=== PATIENT | female | born 1995 | race Caucasian/White ===

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

== ENCOUNTER 2018-08-21 21:22 | Emergency (ER) | payer MEDICAID ==
[2018-08-21 21:37] VITALS: BP 124/83
[2018-08-21] MEDS ORDERED: Lidocaine 4% Top Soln 50 ML Bottle MUCMEM ONE (22:08)
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
== END 2018-08-21 23:12 | disposition home or self-care (01) ==
LOC: JP.ED 21:22
DX: J02.9 Acute pharyngitis, unspecified (principal); F41.9 Anxiety disorder, unspecified; F32.9 Major depressive disorder, single episode, unspecified; Z88.6 Allergy status to analgesic agent; Z79.899 Other long term (current) drug therapy
CPT/HCPCS: 99282; A9270

== ENCOUNTER 2018-09-13 23:54 | Emergency (ER) | payer MEDICAID ==
[2018-09-14 00:22] VITALS: BP 115/82; PULSE 81
[2018-09-14] MEDS ORDERED: Acetaminophen/HYDROcodone 325-5 MG Tab PO ONE (00:40)
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
== END 2018-09-14 00:52 | disposition home or self-care (01) ==
LOC: JP.ED 23:54
DX: K01.1 Impacted teeth (principal); F41.9 Anxiety disorder, unspecified; F32.9 Major depressive disorder, single episode, unspecified; F17.210 Nicotine dependence, cigarettes, uncomplicated; Z79.899 Other long term (current) drug therapy; Z90.49 Acquired absence of other specified parts of digestive tract
CPT/HCPCS: 99282; A9270

== ENCOUNTER 2018-10-19 12:47 | Emergency (ER) | payer MEDICAID ==
[2018-10-19 13:09] VITALS: BP 112/76
[2018-10-19] MEDS ORDERED: Lidocaine 1% with EPINEPHrine 1:100,000 50 ML MDV INFILT STA (13:25)
[2018-10-19] MEDS ORDERED: Bupivacaine 0.5%/EPINEPHrine 1:200,000 1.8 ML Cartridge INJECT ONE (13:35)
[2018-10-19] MEDS ORDERED: Bupivacaine 0.5%/EPINEPHrine 1:200,000 1.8 ML Cartridge ONE (13:36)
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
== END 2018-10-19 14:05 | disposition home or self-care (01) ==
LOC: JP.ED 12:47
DX: K13.79 Other lesions of oral mucosa (principal); F41.9 Anxiety disorder, unspecified; F32.9 Major depressive disorder, single episode, unspecified; F90.9 Attention-deficit hyperactivity disorder, unspecified type; F17.210 Nicotine dependence, cigarettes, uncomplicated; Z90.49 Acquired absence of other specified parts of digestive tract; Z79.899 Other long term (current) drug therapy
CPT/HCPCS: 64400; 99282; J3490

== ENCOUNTER 2018-11-18 07:27 | Day surgery (SDC) | payer MEDICAID ==
[2018-11-18] MEDS: Dextrose 5%-Lactated Ringers 1,000 ML IV SCH ×2 (08:22→11:33)
[2018-11-18] MEDS ORDERED: metroNIDAZOLE/Normal Saline 500 MG in Premix Bag 1 BAG IV ONE (08:47)
[2018-11-18] MEDS ORDERED: Lidocaine 1% with EPINEPHrine 1:100,000 50 ML MDV ONE (08:57)
[2018-11-18] MEDS ORDERED: Bupivacaine 0.5% 50 ML MDV ONE (08:57)
[2018-11-18] MEDS ORDERED: ceFAZolin 2 GM in Premix Bag 1 BAG IV ONE (09:15)
[2018-11-18] MEDS ORDERED: fentaNYL 100 MCG/2 ML SDV ONE (10:00)
[2018-11-18] MEDS ORDERED: Propofol 200 MG/20 ML SDV ONE (10:00)
[2018-11-18] MEDS ORDERED: Glycopyrrolate 0.2 MG/ML 5 ML MDV ONE (10:00)
[2018-11-18] MEDS ORDERED: Ondansetron 4 MG/2 ML SDV ONE (10:00)
[2018-11-18] MEDS ORDERED: fentaNYL 250 MCG/5 ML SDV ONE (10:00)
[2018-11-18] MEDS ORDERED: Midazolam 1 MG/ML 2 ML SDV ONE (10:00)
[2018-11-18] MEDS ORDERED: Neostigmine Methylsulfate 1 MG/ML 5 ML Syringe ONE (10:00)
[2018-11-18] MEDS ORDERED: Rocuronium 50 MG/5 ML Vial ONE (10:00)
[2018-11-18] MEDS ORDERED: valACYclovir 1,000 MG Tab PO PRN (10:40)
[2018-11-18] MEDS ORDERED: Ondansetron 4 MG/2 ML SDV IVPUSH PRN (10:42)
[2018-11-18] MEDS ORDERED: Ketorolac 30 MG/ML SDV IVPUSH SCH (10:45)
[2018-11-18] MEDS: Acetaminophen 500 MG Tab PO PRN ×2 (11:47→20:56)
[2018-11-18] MEDS: fentaNYL 100 MCG/2 ML SDV IVPUSH PRN ×5 (11:55→20:56)
[2018-11-18] MEDS: Lactated Ringers 1,000 ML IV SCH (19:37)
[2018-11-18] MEDS: Escitalopram 20 MG Tab PO SCH (20:56)
[2018-11-18] MEDS ORDERED: Escitalopram 10 MG Tab PO SCH (21:00)
[2018-11-18] MEDS: Acetaminophen/HYDROcodone 325-5 MG Tab PO PRN (22:34)
[2018-11-19] MEDS: Acetaminophen/HYDROcodone 325-5 MG Tab PO PRN ×2 (02:24→07:39)
[2018-11-19] MEDS: Lactated Ringers 1,000 ML IV SCH (02:26)
--- NOTE | 2018-11-19 07:42 | OR ---
DATE OF PROCEDURE: 11/18/2018 SURGEON: Abe Yao MD PREOPERATIVE DIAGNOSIS: Early acute appendicitis. POSTOPERATIVE DIAGNOSES: Unremarkable-appearing appendix. PROCEDURE: Laparoscopic exploration with appendectomy. ANESTHESIA: General endotracheal. INDICATION: This 22-year-old white female has complained of right lower quadrant abdominal pain for about a week and a half. She was seen in the walk-in clinic apparently on the 13 of November and a CAT scan was ordered. This showed mild prominence of the appendiceal tip measuring 7 to 8 mm in diameter and suggestive of mild adjacent inflammatory stranding. This has been considered consistent with early appendicitis. She is afebrile and her white count is unremarkable. She was referred to surgery yesterday, but she had just eaten a meal, so was referred then to me today for a laparoscopic appendectomy. I counseled her for the procedure, including risks and alternatives, and she gave her informed consent to proceed. DESCRIPTION OF PROCEDURE: After adequate general endotracheal anesthesia was obtained, a Turner catheter was placed. The leg compression stockings were in place and used during the entire procedure. Her abdomen was prepped and draped in the usual sterile fashion. Time- out was held. An infraumbilical semicircular incision was made and under direct vision, a 12-mm port was introduced into the abdomen through this incision using the Optiview technique. The camera was introduced into the abdomen and the abdomen was insufflated to a pressure of 15 mmHg with carbon dioxide. No evidence of intraabdominal injury was seen. Under direct vision, 12 mm ports were placed in the right upper and left lower quadrants. We saw some scant fluid in the abdomen, which was aspirated free and sent for Gram stain and culture. The appendix was identified, and it appeared normal. It was not distended, it was not erythematous. The base of the appendix was divided with the endoscopic GREG using a leavitt load. Purple load was used to divide the mesoappendix. The appendix was placed in a sample retrieval bag and elevated up through the anterior abdominal wall via the right upper quadrant port site. It was delivered from the field. The ovaries and tubes appeared unremarkable. The distal small bowel showed no evidence of Crohn's disease nor of Meckel's. The abdomen was then closed. This was done by placing #1 Vicryl stitches in the right upper and left lower quadrant fascial defects using the fascial closure device. We did not tie the stitches down until they were both placed. The stitches were then tied down. The infraumbilical port was removed. An interrupted stitch of 0 Vicryl was used to close this fascial defect. Before tying the stitch down, we evacuated as much CO2 as we could from the abdomen. Lidocaine 1% with epinephrine in a 50:50 mix with 0.5% Marcaine was infiltrated about the incisions. A 4-0 Vicryl was used and a subcuticular stitch was placed to approximate the skin of the incisions. Dermabond was applied. The Turner catheter was removed. The anesthesia was reversed. She was extubated and brought to recovery room in good condition. Abe Yao MD /[id number]
[2018-11-19 07:47] VITALS: BP 132/83; PULSE 88
[2018-11-19] MEDS: Escitalopram 20 MG Tab PO SCH (08:58)
== END 2018-11-19 10:55 | disposition home or self-care (01) ==
LOC: JP.SDS 07:27 → JP.ICU 10:43 → JP.SDS 11-19 10:55
PROVIDERS: ATTEND Surgery
DX: K38.8 Other specified diseases of appendix (principal); F17.210 Nicotine dependence, cigarettes, uncomplicated; F41.9 Anxiety disorder, unspecified; F41.8 Other specified anxiety disorders; F90.9 Attention-deficit hyperactivity disorder, unspecified type; G43.809 Other migraine, not intractable, without status migrainosus; M54.2 Cervicalgia
CPT/HCPCS: 36415; 44970; 80048; 85027; 87070; 87075; 87205; A9270; J0690; J2250; J2405; J2704; J2710; J3010; J3490; J7042; J7120

== ENCOUNTER 2019-05-16 21:07 | Emergency (ER) | payer MEDICAID ==
[2019-05-16 21:30] VITALS: BP 120/83; PULSE 103
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
== END 2019-05-16 23:28 | disposition home or self-care (01) ==
LOC: JP.ED 21:07
DX: O98.512 Other viral diseases complicating pregnancy, second trimester (principal); B34.9 Viral infection, unspecified; O99.332 Smoking (tobacco) complicating pregnancy, second trimester; F17.210 Nicotine dependence, cigarettes, uncomplicated; Z88.1 Allergy status to other antibiotic agents; Z3A.18 18 weeks gestation of pregnancy
CPT/HCPCS: 36415; 85025; 87081; 87804; 87804-59; 87880-QW; 99282; 99283

== ENCOUNTER 2019-10-08 06:41 | Inpatient (IN) | payer MEDICAID ==
[2019-10-08] MEDS ORDERED: Misoprostol 50 MCG (1/2 of 100 MCG) Tab VAG ONE (06:46)
[2019-10-08] MEDS ORDERED: Sodium Chloride 0.9% 10 ML Syringe FLUSH PRN ×2 (08:02→12:09)
[2019-10-08] MEDS ORDERED: Clindamycin Phosphate 900 MG/6 ML SDV IM SCH (08:15)
[2019-10-08] MEDS: Lactated Ringers 1,000 ML IV SCH ×2 (08:15→12:20)
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
[2019-10-08] MEDS: Clindamycin Phosphate 900 MG in Sodium Chloride 0.9% 100 ML IV SCH ×2 (08:27→16:36)
[2019-10-08] MEDS ORDERED: Misoprostol 50 MCG (1/2 of 100 MCG) Tab ONE (11:09)
--- NOTE | 2019-10-08 11:19 | PCM.PNLD ---
Labor Progress Note - VS & Meds Vital Signs: Last Vital Signs Temp 96.5 F L 10/08/19 09:45 Pulse 101 H 10/08/19 09:45 Resp 16 10/08/19 09:45 BP 102/57 L 10/08/19 09:45 Pulse Ox 94 L 10/08/19 09:45 Active Medications: Current Medications Oxytocin/Sodium Chloride (Pitocin In Ns 20 Units/1,000 Ml) 20 unit in 1,000 mls @ 6 mls/hr IV TITRATE [facility]; Protocol Last Titration: 10/08/19 11:13 Dose: 12 munits/min, 36 mls/hr Documented by: Clindamycin Phosphate 900 mg/ (Sodium Chloride) 106 mls @ 212 mls/hr IV Q8H [facility] Last Admin: 10/08/19 08:27 Dose: 212 mls/hr Documented by: Lactated Ringer's (Ringers, Lactated) 1,000 mls @ 0 mls/hr IV ASDIRECTED [facility] Last Admin: 10/08/19 08:15 Dose: 25 mls/hr Documented by: Sodium Chloride (Saline Flush) 10 ml FLUSH ASDIRECTED PRN PRN Reason: Keep Vein Open Discontinued Medications Misoprostol (Cytotec) 50 mcg VAG ONETIME ONE Stop: 10/08/19 06:47 Last Admin: 10/08/19 07:57 Dose: Not Given Documented by: Misoprostol (Cytotec) Confirm Administered Dose 50 mcg .ROUTE .STK-MED ONE Stop: 10/08/19 11:10 - Uterine Contractions Uterine Monitoring Mode: External [place] Contraction Frequency (min): 0 Contraction Intensity: Moderate Uterine Resting Tone: Soft - Monitoring Heart Rate (FHR) Baseline: 150 Heart Rate (FHR) Variability: Moderate (6-25 bmp) Accelerations: Present, 15x15 Decelerations: None Strip Review: Category I - Vaginal Exam Dilation (cm): 4 Effacement (Percent): 80 Station: 0 Cervical Position: Anterior Sterile Vaginal Exam Performed By: Nadja De La Rosa Vaginal Exam Comment: nice cahnge, AROM large amount clear fluid - Labor Progress (Free Text) Labor Progress: Cat one strip labor Plan anticipate vaginal delivery
[2019-10-08] MEDS ORDERED: Ropivacaine 100 ML ONE (11:46)
[2019-10-08] MEDS ORDERED: Naloxone 0.4 MG/ML SDV IVPUSH PRN (12:09)
[2019-10-08] MEDS ORDERED: diphenhydrAMINE 50 MG/ML SDV IVPUSH PRN ×2 (12:09)
[2019-10-08] MEDS ORDERED: ePHEDrine 50 MG/ML SDV IVPUSH PRN (12:09)
[2019-10-08] MEDS ORDERED: Ropivacaine 200 MG in Premix Bag 1 BAG EPIDUR SCH (12:15)
--- NOTE | 2019-10-08 13:04 | US ---
BPP w NST INDICATION: labor induction COMPARISON: None FINDINGS: Single live IUP at 39 weeks 0 days by menstrual dating. ZELAL[place] is 10/15/2019 heart rate: 135 BPM. Biophysical profile score: 8/8. CALE: 12.5 cm. IMPRESSION: Normal biophysical profile score of 8/8.
--- NOTE | 2019-10-08 13:47 | PCM.PNLD ---
Labor Progress Note - VS & Meds Vital Signs: Last Vital Signs Temp 96.5 F L 10/08/19 09:45 Pulse 101 H 10/08/19 09:45 Resp 16 10/08/19 09:45 BP 102/57 L 10/08/19 09:45 Pulse Ox 94 L 10/08/19 09:45 Active Medications: Current Medications Diphenhydramine HCl (Benadryl) 25 mg IVPUSH Q6H PRN PRN Reason: Itching Diphenhydramine HCl (Benadryl) 50 mg IVPUSH Q6H PRN PRN Reason: Itching Ephedrine Sulfate (Ephedrine Sulfate) 10 mg IVPUSH ASDIRECTED PRN PRN Reason: Hypotension Oxytocin/Sodium Chloride (Pitocin In Ns 20 Units/1,000 Ml) 20 unit in 1,000 mls @ 6 mls/hr IV TITRATE [facility]; Protocol Last Titration: 10/08/19 11:13 Dose: 12 munits/min, 36 mls/hr Documented by: Clindamycin Phosphate 900 mg/ (Sodium Chloride) 106 mls @ 212 mls/hr IV Q8H [facility] Last Admin: 10/08/19 08:27 Dose: 212 mls/hr Documented by: Lactated Ringer's (Ringers, Lactated) 1,000 mls @ 0 mls/hr IV ASDIRECTED [facility] Last Admin: 10/08/19 12:20 Dose: 25 mls/hr Documented by: Ropivacaine 200 mg/ Premix 100 mls @ 0 mls/hr EPIDUR ASDIRECTED [facility] Last Admin: 10/08/19 12:00 Dose: 12 mls/hr Documented by: Naloxone HCl (Narcan) 0.1 mg IVPUSH ASDIRECTED PRN PRN Reason: Oversedation Sodium Chloride (Saline Flush) 10 ml FLUSH ASDIRECTED PRN PRN Reason: Keep Vein Open Sodium Chloride (Saline Flush) 10 ml FLUSH ASDIRECTED PRN PRN Reason: Keep Vein Open Discontinued Medications Ropivacaine (Naropin 0.2%) Confirm Administered Dose 100 mls @ as directed .ROUTE .STK-MED ONE Stop: 10/08/19 11:47 Misoprostol (Cytotec) 50 mcg VAG ONETIME ONE Stop: 10/08/19 06:47 Last Admin: 10/08/19 07:57 Dose: Not Given Documented by: Misoprostol (Cytotec) Confirm Administered Dose 50 mcg .ROUTE .STK-MED ONE Stop: 10/08/19 11:10 Last Admin: 10/08/19 12:19 Dose: Not Given Documented by: - Uterine Contractions Uterine Monitoring Mode: External [place] Contraction Frequency (min): 2-2.5 Contraction Duration (sec): 50-60 Contraction Intensity: Moderate Uterine Resting Tone: Soft - Monitoring Heart Rate (FHR) Baseline: 150 Heart Rate (FHR) Variability: Moderate (6-25 bmp) Accelerations: Present, 15x15 Decelerations: None Strip Review: Category I - Vaginal Exam Dilation (cm): 6 Effacement (Percent): 90 Station: 1 Cervical Position: Anterior Sterile Vaginal Exam Performed By: Nadja De La Rosa Vaginal Exam Comment: progressing, comfortable with epidural - Labor Progress (Free Text) Labor Progress: Doing well Plan for vaginal delivery this afternoon
--- NOTE | 2019-10-08 14:48 | PCM.DEL ---
L & D Note - General Info Date of Service: 10/08/19 (Childbirth) Mother's Due Date: 10/15/19 - Delivery Note Labor: Spontaneous Cervical Ripening Method: Misoprostil Delivery Outcome: Livebirth Delivery Method: Spontaneous Vaginal Delivery-Single Infant Delivery Mode: Spontaneous Presentation: Vertex Nuchal Cord: None Anesthesia Type: Epidural Amniotic Fluid Description: Clear Episiotomy Type: None Laceration: None Placenta: Intact, Spontaneous, Manual Removal Cord: 3 Vessels Estimated Blood Loss: 0 Resuscitation Needed: No [place]: Warmed, [place] Used Provider: Nadja De La Rosa Score 1 min: 9 Score 5 min: 9 Second Stage Interventions: Reports: Second Nurse Reviewed Heart Tones, Pushing Effectively Delivery Comments (Free Text/Narrative):: 10/08/19 This 23 year old G4 now P3 who is 39 weeks gestation delivered VIA at 1423 over an intact perineum a viable female infant in TIMOTHY position. The was delivered onto mother's abdomen where she was dried and stimulated, She cried spontaneously. delayed cord clamping and active management of the third stage was employed. Apgars 9 and 9. three vessel cord.. The placenta was expressed spontaneously intact. It had a velamentous intact along the edge. No lacerations were found of vagina, perineum, cervix or rectum. EBL zero Mother and baby to in great condition Induction Criteria - Chilel Score Chilel Score Dilation: 3-4 cm Chilel Score Effacement: 60-70% Chilel Score 's Station: -1 ,0 Chilel Score Consistency: Soft Chilel Score Cervix Position: Posterior Chilel Score Total: 8 Chilel Score Presenting Part: Reports: Cephalic - Induction Gestational Age >/= 39 wks: Yes Estimated Pelvis: Reports: Adequate Reassuring Monitoring Strip: Yes Absence of Tachy Systole: Yes - General Info Date of Service: 10/08/19 Admission Dx/Problem (Free Text): Patient Status Order with Admit Dx/Problem 10/08/19 08:02 Patient Status [ADT] Routine Admission Diagnosis/Problem Admission Diagnosis/Problem Functional Status: Reports: Pain Controlled - Review of Systems General: Reports: No Symptoms HEENT: Reports: No Symptoms Pulmonary: Reports: No Symptoms Cardiovascular: Reports: No Symptoms Gastrointestinal: Reports: No Symptoms Genitourinary: Reports: No Symptoms Musculoskeletal: Reports: No Symptoms Skin: Reports: No Symptoms Neurological: Reports: No Symptoms Psychiatric: Reports: No Symptoms - Patient Data Vitals - Most Recent: Last Vital Signs Temp 96.5 F L 10/08/19 12:20 Pulse 85 10/08/19 12:20 Resp 16 10/08/19 12:20 BP 117/65 10/08/19 12:20 Pulse Ox 95 10/08/19 12:20 Weight - Most Recent: 198 lb Lab Results Last 24 Hours: Laboratory Results - last 24 hr 10/08/19 10/08/19 10/08/19 Range/Units 07:20 07:20 07:20 WBC 16.0 H (4.5-11.0) K/uL RBC 3.83 (3.30-5.50) M/uL Hgb 13.0 (12.0-15.0) g/dL Hct 37.9 (36.0-48.0) % MCV 99 H (80-98) fL MCH 34 H (27-31) pg MCHC 34 (32-36) % Plt Count 189 (150-400) K/uL Neut % (Auto) 75 H (36-66) % Lymph % (Auto) 19 L (24-44) % [place] % (Auto) 5 (2-6) % Eos % (Auto) 1 L (2-4) % Baso % (Auto) 0 (0-1) % Urine Color Yellow (YELLOW) Urine Appearance Slightly cloudy A (CLEAR) Urine pH 5.5 (5.0-8.0) Ur Specific [place] >= 1.030 (1.008-1.030) Urine Protein Trace H (NEGATIVE) mg/dL Urine Glucose (UA) Negative (NEGATIVE) mg/dL Urine Ketones Negative (NEGATIVE) mg/dL Urine Occult Blood Large H (NEGATIVE) Urine Nitrite Negative (NEGATIVE) Urine Bilirubin Negative (NEGATIVE) Urine Urobilinogen 0.2 (0.2-1.0) EU/dL Ur Leukocyte Esterase Small H (NEGATIVE) Urine RBC 50-75 H (0-5) Urine WBC 50-75 H (0-5) Ur Epithelial Cells Many Urine Bacteria Moderate Urine Opiates Screen Negative (NEGATIVE) Ur Oxycodone Screen Negative (NEGATIVE) Urine Methadone Screen Negative (NEGATIVE) Ur Propoxyphene Screen Negative (NEGATIVE) Ur Barbiturates Screen Negative (NEGATIVE) Ur Tricyclics Screen Negative (NEGATIVE) Ur Phencyclidine Scrn Negative (NEGATIVE) Ur Amphetamine Screen Negative (NEGATIVE) U Methamphetamines Scrn Negative (NEGATIVE) Urine MDMA Screen Negative (NEGATIVE) U Benzodiazepines Scrn Negative (NEGATIVE) U Cocaine Metab Screen Negative (NEGATIVE) U Marijuana (THC) Screen Negative (NEGATIVE) Med Orders - Current: Current Medications Diphenhydramine HCl (Benadryl) 25 mg IVPUSH Q6H PRN PRN Reason: Itching Diphenhydramine HCl (Benadryl) 50 mg IVPUSH Q6H PRN PRN Reason: Itching Ephedrine Sulfate (Ephedrine Sulfate) 10 mg IVPUSH ASDIRECTED PRN PRN Reason: Hypotension Oxytocin/Sodium Chloride (Pitocin In Ns 20 Units/1,000 Ml) 20 unit in 1,000 mls @ 6 mls/hr IV TITRATE [facility]; Protocol Last Titration: 10/08/19 11:13 Dose: 12 munits/min, 36 mls/hr Documented by: Clindamycin Phosphate 900 mg/ (Sodium Chloride) 106 mls @ 212 mls/hr IV Q8H [facility] Last Admin: 10/08/19 08:27 Dose: 212 mls/hr Documented by: Lactated Ringer's (Ringers, Lactated) 1,000 mls @ 0 mls/hr IV ASDIRECTED [facility] Last Admin: 10/08/19 12:20 Dose: 25 mls/hr Documented by: Ropivacaine 200 mg/ Premix 100 mls @ 0 mls/hr EPIDUR ASDIRECTED [facility] Last Admin: 10/08/19 12:00 Dose: 12 mls/hr Documented by: Naloxone HCl (Narcan) 0.1 mg IVPUSH ASDIRECTED PRN PRN Reason: Oversedation Sodium Chloride (Saline Flush) 10 ml FLUSH ASDIRECTED PRN PRN Reason: Keep Vein Open Sodium Chloride (Saline Flush) 10 ml FLUSH ASDIRECTED PRN PRN Reason: Keep Vein Open Discontinued Medications Ropivacaine (Naropin 0.2%) Confirm Administered Dose 100 mls @ as directed .ROUTE .STK-MED ONE Stop: 10/08/19 11:47 Misoprostol (Cytotec) 50 mcg VAG ONETIME ONE Stop: 10/08/19 06:47 Last Admin: 10/08/19 07:57 Dose: Not Given Documented by: Misoprostol (Cytotec) Confirm Administered Dose 50 mcg .ROUTE .K-MED ONE Stop: 10/08/19 11:10 Last Admin: 10/08/19 12:19 Dose: Not Given Documented by: - Exam General: Alert, Oriented HEENT: Pupils Equal Neck: Supple Lungs: Normal Respiratory Effort Cardiovascular: Regular Rate, Regular Rhythm GI/Abdominal Exam: Soft, Non-Tender (Female) Exam: Normal External Exam, Cervical Dilatation, Enlarged Uterus, Heart Tones Back Exam: Normal Inspection Extremities: No Pedal Edema, Normal Capillary Refill Skin: Warm, Dry, Intact Neurological: No New Focal Deficit Psy/Mental Status: Alert, Normal Affect, Normal Mood - Problem List & Annotations (1) GBS (group B Streptococcus carrier), +RV culture, currently SNOMED Code(s): 9655374602308, 817663255, 3971486109421 Code(s): O99.820 - STREPTOCOCCUS B CARRIER STATE COMPLICATING Status: Acute Current Visit: Yes (2) Smoker SNOMED Code(s): 40199389 Code(s): F17.200 - NICOTINE DEPENDENCE, UNSPECIFIED, UNCOMPLICATED Status: Acute Current Visit: Yes (3) Encounter for planned induction of labor SNOMED Code(s): 799513647 Code(s): Z34.90 - ENCNTR FOR SUPRVSN OF NORMAL , UNSP, UNSP TRIMESTER Status: Acute Current Visit: Yes (4) SNOMED Code(s): 37008559 Code(s): Z34.90 - ENCNTR FOR SUPRVSN OF NORMAL , UNSP, UNSP TRIMESTER Status: Acute Current Visit: Yes Qualifiers: Weeks of gestation: 39 weeks Qualified Code(s): Z3A.39 - 39 weeks gestation of (5) Velamentous insertion of umbilical cord SNOMED Code(s): 57450493 Code(s): O43.129 - VELAMENTOUS INSERTION OF UMBILICAL CORD, UNSP TRIMESTER Status: Acute Current Visit: Yes Qualifiers: Trimester: third trimester Qualified Code(s): O43.123 - Velamentous insertion of umbilical cord, third trimester - Problem List Review Problem List Initiated/Reviewed/Updated: Yes - My Orders Last 24 Hours: My Active Orders 10/08/19 08:02 Patient Status [ADT] Routine Communication Order [RC] ASDIRECTED Non Stress Test [RC] Click to Edit Notify Provider Vital Signs [RC] PRN Notify Provider [RC] PRN Vital Signs [RC] PER UNIT ROUTINE Sodium Chloride 0.9% [Saline Flush] 10 ml FLUSH ASDIRECTED PRN DVT/VTE Prophylaxis Reflex [OM.PC] Routine Saline Lock Insert [OM.PC] Routine Resuscitation Status Routine 10/08/19 08:04 Antiembolic Devices [RC] .Routine VTE/DVT Education [RC] Click to Edit 10/08/19 08:15 Oxytocin/Normal Saline [Pitocin in NS 20 Units/1,000 ML] 20 unit in 1,000 ml IV TITRATE 10/08/19 08:30 Clindamycin Phosphate [Cleocin] 900 mg Sodium Chloride 0.9% [Normal Saline] 100 ml IV Q8H 10/08/19 08:45 Lactated Ringers [Ringers, Lactated] 1,000 ml IV ASDIRECTED 10/08/19 12:09 PCEA Epidural [RC] ASDIRECTED Epidural Catheter Management [OM.PC] Routine 10/08/19 12:45 Turner Catheter Insertion [Insert Urinary Catheter] [OM.PC] Q24H Urinary Catheter Assessment [RC] ASDIRECTED 10/08/19 Dinner Regular Diet [DIET] - Assessment Assessment:: 10/08/19 delivery This 23 old year without complications Normal female infant GBS positive smoker - Plan Plan:: 23 year old 39 week IUP, Smoker, pos GBS HGB 13, PLT 189 ABO B po, HIV neg, Rubella immune Urine pos for UTI reactive NST and BPP 10/01 negative COVID-19 screening test Plan: Pitocin to establish contraction Epidural for pain management AROM when oscar Clindamycin for UTI and GBS May eat lightly, up and about until epidural 10/08/19 Plan: routine care give second of of antibiotic for GBS and UTI support 48 hour stay
[2019-10-08] MEDS ORDERED: Benzocaine 20% Top Spray 56 GM Bottle TOP PRN (14:54)
[2019-10-08] MEDS ORDERED: Lanolin 100% Cream 40 GM Tube TOP ONE (14:54)
[2019-10-08] MEDS ORDERED: Hydrocortisone 2.5% Crm 30 GM Tube TOP PRN (14:54)
[2019-10-08] MEDS ORDERED: Witch Hazel Medicated Pads 100/Jar TOP ONE (14:54)
[2019-10-08] MEDS ORDERED: Ibuprofen 200 MG Tab, 24 Tab Bulk Bottle PO PRN (14:56)
[2019-10-08] MEDS ORDERED: Acetaminophen 325 MG Tab, 50 Tab Bulk Bottle PO PRN (14:56)
[2019-10-08] MEDS ORDERED: Lanolin 100% Cream 40 GM Tube TOP PRN (17:35)
[2019-10-08] MEDS ORDERED: Witch Hazel Medicated Pads 100/Jar TOP PRN (17:35)
--- NOTE | 2019-10-09 10:00 | PCM.PNPP ---
- General Info Date of Service: 10/09/19 (PPD 1) Admission Dx/Problem (Free Text): Patient Status Order with Admit Dx/Problem 10/08/19 08:02 Patient Status [ADT] Routine Admission Diagnosis/Problem Admission Diagnosis/Problem Functional Status: Reports: Pain Controlled - Review of Systems General: Reports: No Symptoms HEENT: Reports: No Symptoms Pulmonary: Reports: No Symptoms Cardiovascular: Reports: No Symptoms Gastrointestinal: Reports: No Symptoms Genitourinary: Reports: No Symptoms Musculoskeletal: Reports: No Symptoms Skin: Reports: No Symptoms Neurological: Reports: No Symptoms Psychiatric: Reports: No Symptoms - General Info Date of Service: 10/09/19 - Patient Data Vital Signs - Most Recent: Last Vital Signs Temp 96.5 F L 10/09/19 07:00 Pulse 82 10/09/19 07:00 Resp 16 10/09/19 07:00 BP 103/66 10/09/19 07:00 Pulse Ox 98 10/09/19 07:00 Weight - Most Recent: 198 lb I&O - Last 24 Hours: Intake & Output 10/08/19 10/09/19 10/09/19 22:59 06:59 14:59 Intake Total 2337 Balance 2337 Lab Results - Last 24 Hours: Laboratory Results - last 24 hr 10/09/19 Range/Units 05:58 WBC 14.5 H (4.5-11.0) K/uL RBC 3.57 (3.30-5.50) M/uL Hgb 12.0 (12.0-15.0) g/dL Hct 35.8 L (36.0-48.0) % MCV 100 H (80-98) fL MCH 34 H (27-31) pg MCHC 34 (32-36) % Plt Count 191 (150-400) K/uL Med Orders - Current: Current Medications Acetaminophen (Tylenol Bulk Bottle) 0 mg PO Q4H PRN PRN Reason: Pain Last Admin: 10/08/19 17:45 Dose: 650 mg Documented by: Benzocaine ([id number] 20% [place]) 0 gm TOP Q4H PRN PRN Reason: PAIN Last Admin: 10/08/19 17:44 Dose: 1 spr Documented by: Diphenhydramine HCl (Benadryl) 25 mg IVPUSH Q6H PRN PRN Reason: Itching Diphenhydramine HCl (Benadryl) 50 mg IVPUSH Q6H PRN PRN Reason: Itching Emollient Ointment (Lansinoh Hpa) 0 gm TOP ASDIRECTED PRN PRN Reason: PAIN Ephedrine Sulfate (Ephedrine Sulfate) 10 mg IVPUSH ASDIRECTED PRN PRN Reason: Hypotension Hydrocortisone (Proctozone-Hc 2.5% Crm) 0 gm TOP ASDIRECTED PRN PRN Reason: Itching Ceftriaxone Sodium 1 gm/ (Sodium Chloride) 50 mls @ 100 mls/hr IV ONETIME ONE Stop: 10/09/19 10:20 Ibuprofen (Motrin Bulk Bottle) 600 mg PO Q6H PRN PRN Reason: Pain Last Admin: 10/08/19 17:43 Dose: 600 mg Documented by: Naloxone HCl (Narcan) 0.1 mg IVPUSH ASDIRECTED PRN PRN Reason: Oversedation Sodium Chloride (Saline Flush) 10 ml FLUSH ASDIRECTED PRN PRN Reason: Keep Vein Open Sodium Chloride (Saline Flush) 10 ml FLUSH ASDIRECTED PRN PRN Reason: Keep Vein Open Witch Juliann (Tucks) 1 pad TOP ASDIRECTED PRN PRN Reason: HEMMROIDS Discontinued Medications Emollient Ointment (Lansinoh Hpa) 0 gm TOP ASDIRECTED ONE Stop: 10/08/19 14:55 Last Admin: 10/08/19 17:42 Dose: 1 applic Documented by: Oxytocin/Sodium Chloride (Pitocin In Ns 20 Units/1,000 Ml) 20 unit in 1,000 mls @ 6 mls/hr IV TITRATE [facility]; Protocol Last Titration: 10/08/19 14:25 Dose: 333 munits/min, 999 mls/hr Documented by: Clindamycin Phosphate 900 mg/ (Sodium Chloride) 106 mls @ 212 mls/hr IV Q8H [facility] Stop: 10/08/19 19:00 Last Admin: 10/08/19 16:36 Dose: 212 mls/hr Documented by: Lactated Ringer's (Ringers, Lactated) 1,000 mls @ 0 mls/hr IV ASDIRECTED [facility] Last Admin: 10/08/19 12:20 Dose: 25 mls/hr Documented by: Ropivacaine (Naropin 0.2%) Confirm Administered Dose 100 mls @ as directed .ROUTE .STK-MED ONE Stop: 10/08/19 11:47 Ropivacaine 200 mg/ Premix 100 mls @ 0 mls/hr EPIDUR ASDIRECTED [facility] Last Admin: 10/08/19 12:00 Dose: 12 mls/hr Documented by: Misoprostol (Cytotec) 50 mcg VAG ONETIME ONE Stop: 10/08/19 06:47 Last Admin: 10/08/19 07:57 Dose: Not Given Documented by: Misoprostol (Cytotec) Confirm Administered Dose 50 mcg .ROUTE .STK-MED ONE Stop: 10/08/19 11:10 Last Admin: 10/08/19 12:19 Dose: Not Given Documented [facility]: [facility] 1 pad TOP ASDIRECTED ONE Stop: 10/08/19 14:55 Last Admin: 10/08/19 17:43 Dose: 1 pad Documented by: - Infant Interaction Infant Disposition, : [place] in Room with Family Infant Interaction: Holding Infant Feeding: Breastfed Infant; Nursed Well Support Person: Significant Other - Recovery Exam Fundal Tone: Firm Fundal Level: 2 Fingerbreadths Below Umbilicus Fundal Placement: Midline Lochia Amount: Small Lochia Color: Rubra/Red Perineum Description: Intact, Minimal Bruising/Swelling Bladder Status: Voiding Urinary Elimination: Voided - Exam General: Alert, Oriented HEENT: Pupils Equal Neck: Supple Lungs: Clear to Auscultation Cardiovascular: Regular Rate GI/Abdominal Exam: Normal Bowel Sounds, Non-Tender Extremities: No Pedal Edema, Normal Capillary Refill Skin: Warm Wound/Incisions: Healing Well Neurological: No New Focal Deficit Psy/Mental Status: Alert, Normal Affect - Problem List & Annotations (1) GBS (group B Streptococcus carrier), +RV culture, currently SNOMED Code(s): 8090443642048, 094269279, 2111058109749 Code(s): O99.820 - STREPTOCOCCUS B CARRIER STATE COMPLICATING Status: Acute Current Visit: Yes (2) Smoker SNOMED Code(s): 79769353 Code(s): F17.200 - NICOTINE DEPENDENCE, UNSPECIFIED, UNCOMPLICATED Status: Acute Current Visit: Yes (3) Encounter for planned induction of labor SNOMED Code(s): 185285515 Code(s): Z34.90 - ENCNTR FOR SUPRVSN OF NORMAL , UNSP, UNSP TRIMESTER Status: Acute Current Visit: Yes (4) SNOMED Code(s): 22653010 Code(s): Z34.90 - ENCNTR FOR SUPRVSN OF NORMAL , UNSP, UNSP TRIMESTER Status: Acute Current Visit: Yes Qualifiers: Weeks of gestation: 39 weeks Qualified Code(s): Z3A.39 - 39 weeks gestation of (5) Velamentous insertion of umbilical cord SNOMED Code(s): 19954548 Code(s): O43.129 - VELAMENTOUS INSERTION OF UMBILICAL CORD, UNSP TRIMESTER Status: Acute Current Visit: Yes Qualifiers: Trimester: third trimester Qualified Code(s): O43.123 - Velamentous insertion of umbilical cord, third trimester - Problem List Review Problem List Initiated/Reviewed/Updated: Yes - My Orders Last 24 Hours: My Active Orders 10/08/19 12:09 Epidural Catheter Management [OM.PC] Routine 10/08/19 12:45 Turner Catheter Insertion [Insert Urinary Catheter] [OM.PC] Q24H 10/08/19 14:54 Patient Status [ADT] Routine Vital Signs [RC] PFP Benzocaine [[id number] 20% [place]] See Dose Instructions TOP Q4H PRN Hydrocortisone [Proctozone-HC 2.5% Crm] 0 gm TOP ASDIRECTED PRN 10/08/19 14:55 Perineal Care [OM.PC] Per Unit Routine [place]itz [place] [OM.PC] Per Unit Routine 10/08/19 14:56 Acetaminophen [Tylenol Bulk Bottle] See Dose Instructions PO Q4H PRN Ibuprofen [Motrin Bulk Bottle] 600 mg PO Q6H PRN 10/08/19 Dinner Regular Diet [DIET] 10/08/19 17:35 Lanolin [Lansinoh HPA] 0 gm TOP ASDIRECTED PRN witch Juliann [Tucks] 1 pad TOP ASDIRECTED PRN 10/09/19 09:51 cefTRIAXone [Rocephin] 1 gm Sodium Chloride 0.9% [Normal Saline] 50 ml IV ONETIME 10/09/19 09:53 Nicotine [Habitrol] 14 mg TRDERM ONETIME ONE - Assessment Assessment:: 10/08/19 delivery This 23 old year without complications Normal female infant GBS positive smoker 10/09/19 doing well C/O cramping, using NSAIDs with relief Wants to smoke White count down to 14.5 today will treat with antibiotic IV as she is staying until tomorrow will cover GBS and UTI going great flow light and mood is good - Plan Plan:: 23 year old 39 week IUP, Smoker, pos GBS HGB 13, PLT 189 ABO B po, HIV neg, Rubella immune Urine pos for UTI reactive NST and BPP 10/01 negative COVID-19 screening test Plan: Pitocin to establish contraction Epidural for pain management AROM when oscar Clindamycin for UTI and GBS May eat lightly, up and about until epidural 10/08/19 Plan: routine care give second of of antibiotic for GBS and UTI support 48 hour stay 10/09/19 Continue routine care Nicotine patch today Rocephin 1 GM IV today Home tomorrow
[2019-10-09] MEDS ORDERED: Nicotine 14 MG/24 Hr Patch TRDERM ONE (11:00)
[2019-10-09] MEDS ORDERED: cefTRIAXone 1 GM in Sodium Chloride 0.9% 50 ML IV ONE (11:15)
--- NOTE | 2019-10-09 12:09 | ANES ---
DATE OF SERVICE: 10/08/2019 TIME: 1130. INDICATION: I was called to the Labor and Delivery Unit to evaluate Mrs. Jeffrey for a labor epidural. She is a multip who is approximately 5 cm and in active labor. Risks and benefits of the procedure were explained to the patient. She wished to proceed with labor epidural. TECHNIQUE: She was placed in a sitting position. Her back was prepped x3 with Betadine. 1% lidocaine skin local was used. The epidural was placed at L3-L4 using a 17-gauge Tuohy needle in loss of resistance technique. The epidural had very good feel throughout, and the epidural space was easily identified. There was negative CSF, negative blood, and negative paresthesias noted. Therefore, a catheter was threaded to 12 cm at the skin. There was negative CSF, negative blood, and negative paresthesias noted with the catheter as well. The catheter was then secured with Tegaderm and tape. A 3 mL bolus of 1.5% lidocaine with epinephrine was given, and this test dose was negative. The patient was then placed in a supine position where a 0.2% ropivacaine bolus was given of 10 mL. The patient had very good relief from the bolus and vital signs remained stable. Therefore, a 0.2% ropivacaine drip was started at 12 mL/h. She had good relief and was feeling very nicely when I left. No anesthesia complications noted. Her vital signs remained stable throughout the procedure and nurse was with me for the entire procedure. We will continue to monitor throughout her labor and delivery. Albino Granger CRNA /[id number]
[2019-10-10 08:05] VITALS: BP 129/80; PULSE 78
--- NOTE | 2019-10-10 09:45 | PCM.PNPP ---
- General Info Date of Service: 10/10/19 (PPD 2 D/C) Admission Dx/Problem (Free Text): Patient Status Order with Admit Dx/Problem 10/08/19 08:02 Patient Status [ADT] Routine Admission Diagnosis/Problem Admission Diagnosis/Problem Functional Status: Reports: Pain Controlled - Review of Systems General: Reports: No Symptoms HEENT: Reports: No Symptoms Pulmonary: Reports: No Symptoms Cardiovascular: Reports: No Symptoms Gastrointestinal: Reports: No Symptoms Genitourinary: Reports: No Symptoms Musculoskeletal: Reports: No Symptoms Skin: Reports: No Symptoms Neurological: Reports: No Symptoms Psychiatric: Reports: No Symptoms - Patient Data Vital Signs - Most Recent: Last Vital Signs Temp 96.5 F L 10/10/19 08:04 Pulse 78 10/10/19 08:04 Resp 16 10/10/19 08:04 BP 129/80 10/10/19 08:04 Pulse Ox 99 10/10/19 08:04 Weight - Most Recent: 198 lb Med Orders - Current: Current Medications Acetaminophen (Tylenol Bulk Bottle) 0 mg PO Q4H PRN PRN Reason: Pain Last Admin: 10/08/19 17:45 Dose: 650 mg Documented by: Benzocaine (Bogt-N-Ymtofky 20% Dows) 0 gm TOP Q4H PRN PRN Reason: PAIN Last Admin: 10/08/19 17:44 Dose: 1 spr Documented by: Diphenhydramine HCl (Benadryl) 25 mg IVPUSH Q6H PRN PRN Reason: Itching Diphenhydramine HCl (Benadryl) 50 mg IVPUSH Q6H PRN PRN Reason: Itching Emollient Ointment (Lansinoh Hpa) 0 gm TOP ASDIRECTED PRN PRN Reason: PAIN Ephedrine Sulfate (Ephedrine Sulfate) 10 mg IVPUSH ASDIRECTED PRN PRN Reason: Hypotension Hydrocortisone (Proctozone-Hc 2.5% Crm) 0 gm TOP ASDIRECTED PRN PRN Reason: Itching Ibuprofen (Motrin Bulk Bottle) 600 mg PO Q6H PRN PRN Reason: Pain Last Admin: 10/08/19 17:43 Dose: 600 mg Documented by: Naloxone HCl (Narcan) 0.1 mg IVPUSH ASDIRECTED PRN PRN Reason: Oversedation Sodium Chloride (Saline Flush) 10 ml FLUSH ASDIRECTED PRN PRN Reason: Keep Vein Open Sodium Chloride (Saline Flush) 10 ml FLUSH ASDIRECTED PRN PRN Reason: Keep Vein Open Witrichard Humphreys (Tucks) 1 pad TOP ASDIRECTED PRN PRN Reason: HEMMROIDS Discontinued Medications Emollient Ointment (Lansinoh Hpa) 0 gm TOP ASDIRECTED ONE Stop: 10/08/19 14:55 Last Admin: 10/08/19 17:42 Dose: 1 applic Documented by: Oxytocin/Sodium Chloride (Pitocin In Ns 20 Units/1,000 Ml) 20 unit in 1,000 mls @ 6 mls/hr IV TITRATE [facility]; Protocol Last Titration: 10/08/19 14:25 Dose: 333 munits/min, 999 mls/hr Documented by: Clindamycin Phosphate 900 mg/ (Sodium Chloride) 106 mls @ 212 mls/hr IV Q8H [facility] Stop: 10/08/19 19:00 Last Admin: 10/08/19 16:36 Dose: 212 mls/hr Documented by: Lactated Ringer's (Ringers, Lactated) 1,000 mls @ 0 mls/hr IV ASDIRECTED [facility] Last Admin: 10/08/19 12:20 Dose: 25 mls/hr Documented by: Ropivacaine (Naropin 0.2%) Confirm Administered Dose 100 mls @ as directed .ROUTE .STK-MED ONE Stop: 10/08/19 11:47 Ropivacaine 200 mg/ Premix 100 mls @ 0 mls/hr EPIDUR ASDIRECTED [facility] Last Admin: 10/08/19 12:00 Dose: 12 mls/hr Documented by: Ceftriaxone Sodium 1 gm/ (Sodium Chloride) 50 mls @ 100 mls/hr IV ONETIME ONE Stop: 10/09/19 11:44 Last Admin: 10/09/19 11:05 Dose: 100 mls/hr Documented by: Misoprostol (Cytotec) 50 mcg VAG ONETIME ONE Stop: 10/08/19 06:47 Last Admin: 10/08/19 07:57 Dose: Not Given Documented by: Misoprostol (Cytotec) Confirm Administered Dose 50 mcg .ROUTE .STK-MED ONE Stop: 10/08/19 11:10 Last Admin: 10/08/19 12:19 Dose: Not Given Documented by: Nicotine (Habitrol) 14 mg TRDERM ONETIME ONE Stop: 10/09/19 11:01 Last Admin: 10/09/19 11:05 Dose: 14 mg Documented by: Heidi Bach) 1 pad TOP ASDIRECTED ONE Stop: 10/08/19 14:55 Last Admin: 10/08/19 17:43 Dose: 1 pad Documented by: - Infant Interaction Infant Disposition, : in Room with Family Infant Interaction: Holding Infant Feeding: Breastfed Infant; Nursed Well Support Person: Significant Other - Recovery Exam Fundal Tone: Firm Fundal Level: 2 Fingerbreadths Below Umbilicus Fundal Placement: Midline Lochia Amount: Small Lochia Color: Rubra/Red Perineum Description: Intact, Minimal Bruising/Swelling Bladder Status: Voiding Urinary Elimination: Voided - Exam General: Alert, Oriented HEENT: Pupils Equal Neck: Supple Lungs: Clear to Auscultation, Normal Respiratory Effort Cardiovascular: Regular Rate, Regular Rhythm GI/Abdominal Exam: Normal Bowel Sounds, Soft, Non-Tender, No Organomegaly, No Distention, No Abnormal Bruit, No Mass, Pelvis Stable Extremities: Normal Inspection, Normal Range of Motion, Non-Tender, No Pedal Edema, Normal Capillary Refill Skin: Warm, Dry, Intact Wound/Incisions: Healing Well Neurological: No New Focal Deficit Psy/Mental Status: Alert, Normal Affect, Normal Mood - Problem List & Annotations (1) GBS (group B Streptococcus carrier), +RV culture, currently SNOMED Code(s): 6705731430597, 051089262, 8886288829324 Code(s): O99.820 - STREPTOCOCCUS B CARRIER STATE COMPLICATING Status: Acute Current Visit: Yes (2) Smoker SNOMED Code(s): 80863672 Code(s): F17.200 - NICOTINE DEPENDENCE, UNSPECIFIED, UNCOMPLICATED Status: Acute Current Visit: Yes (3) Encounter for planned induction of labor SNOMED Code(s): 783050170 Code(s): Z34.90 - ENCNTR FOR SUPRVSN OF NORMAL , UNSP, UNSP TRIMESTER Status: Acute Current Visit: Yes (4) SNOMED Code(s): 35881451 Code(s): Z34.90 - ENCNTR FOR SUPRVSN OF NORMAL , UNSP, UNSP TRIMESTER Status: Acute Current Visit: Yes Qualifiers: Weeks of gestation: 39 weeks Qualified Code(s): Z3A.39 - 39 weeks gestation of (5) Velamentous insertion of umbilical cord SNOMED Code(s): 51628089 Code(s): O43.129 - VELAMENTOUS INSERTION OF UMBILICAL CORD, UNSP TRIMESTER Status: Acute Current Visit: Yes Qualifiers: Trimester: third trimester Qualified Code(s): O43.123 - Velamentous insertion of umbilical cord, third trimester - Problem List Review Problem List Initiated/Reviewed/Updated: Yes - Assessment Assessment:: 10/08/19 delivery This 23 old year without complications Normal female GBS positive smoker 10/09/19 doing well C/O cramping, using NSAIDs with relief Wants to smoke White count down to 14.5 today will treat with antibiotic IV as she is staying until tomorrow will cover GBS and UTI going great flow light and mood is good 10/10/19 Happy, no problems great Flow light, cramping better no fever or uti symptoms wants to go home - Plan Plan:: 23 year old 39 week IUP, Smoker, pos GBS HGB 13, PLT 189 ABO B po, HIV neg, Rubella immune Urine pos for UTI reactive NST and BPP 10/01 negative COVID-19 screening test Plan: Pitocin to establish contraction Epidural for pain management AROM when oscar Clindamycin for UTI and GBS May eat lightly, up and about until epidural 10/08/19 Plan: routine care give second of of antibiotic for GBS and UTI support 48 hour stay 10/09/19 Continue routine care Nicotine patch today Rocephin 1 GM IV today Home tomorrow 10/10/19 Discharge home today Has a correctional case manager for [employer], they have been notified and will see her this week. Social service referral for [employer] made and Nehemias is willing to participate. Order for breast pump written See Milady Garrison in 6 weeks for post visit
== END 2019-10-10 10:30 | disposition home or self-care (01) | DRG 807 ==
LOC: JP.OB 06:58 → OBSVTOIN 14:23 → EEVIPCON 14:23 → JP.MS 18:30
PROVIDERS: ADMIT Nurse Practitioner Family; ATTEND Nurse Practitioner Family
PROC: 10E0XZZ Delivery of Products of Conception, External Approach (ICD-10-PCS; principal; 2019-10-08)
PROC: 10907ZC Drainage of Amniotic Fluid, Therapeutic from Products of Conception, Via Natural or Artificial Opening (ICD-10-PCS; 2019-10-08)
PROC: 3E0P7VZ Introduction of Hormone into Female Reproductive, Via Natural or Artificial Opening (ICD-10-PCS; 2019-10-08)
PROC: 3E0R3BZ Introduction of Anesthetic Agent into Spinal Canal, Percutaneous Approach (ICD-10-PCS; 2019-10-08)
PROC: 00HU33Z Insertion of Infusion Device into Spinal Canal, Percutaneous Approach (ICD-10-PCS; 2019-10-08)
DX: O99.824 Streptococcus B carrier state complicating childbirth (principal); Z37.0 Single live birth; Z3A.39 39 weeks gestation of pregnancy; O99.334 Smoking (tobacco) complicating childbirth; F17.210 Nicotine dependence, cigarettes, uncomplicated; O75.3 Other infection during labor; O43.123 Velamentous insertion of umbilical cord, third trimester
CPT/HCPCS: 36415; 51702; 59409; 76818; 76818-26; 80305-QW; 81001; 85025; 85027; 99211; A9270-GY; J0696; J2590; J2795; J3490; J7050; J7120

== ENCOUNTER 2020-01-29 16:00 | Emergency (ER) | payer MEDICAID ==
[2020-01-29 16:33] VITALS: BP 117/68; PULSE 96
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
== END 2020-01-29 18:13 | disposition home or self-care (01) ==
LOC: JP.ED 16:00
DX: N94.89 Other specified conditions associated with female genital organs and menstrual cycle (principal); E86.0 Dehydration; F41.9 Anxiety disorder, unspecified; F32.9 Major depressive disorder, single episode, unspecified; Z88.1 Allergy status to other antibiotic agents; Z88.6 Allergy status to analgesic agent; Z79.899 Other long term (current) drug therapy
CPT/HCPCS: 36415; 80305-QW; 81001; 81025; 85027; 86140; 99284

== ENCOUNTER 2020-12-31 20:39 | Emergency (ER) | payer MEDICAID ==
[2020-12-31 21:34] VITALS: BP 111/73; PULSE 107
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
== END 2020-12-31 22:24 | disposition home or self-care (01) ==
LOC: JP.ED 20:39
DX: O99.891 Other specified diseases and conditions complicating pregnancy (principal); R10.2 Pelvic and perineal pain; Z88.0 Allergy status to penicillin; Z72.0 Tobacco use; Z3A.19 19 weeks gestation of pregnancy
CPT/HCPCS: 81001; 99284-25

== ENCOUNTER 2021-02-24 13:34 | Emergency (ER) | payer MEDICAID ==
[2021-02-24 13:46] VITALS: BP 108/75; PULSE 102
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
[2021-02-24 14:36] LABS: CORONAVIRUS COVID-19 NAA POSITIVE (NEGATIVE)
== END 2021-02-24 15:10 | disposition home or self-care (01) ==
LOC: JP.ED 13:34
DX: U07.1 COVID-19 (principal); Z88.0 Allergy status to penicillin; Z88.6 Allergy status to analgesic agent; Z72.0 Tobacco use
CPT/HCPCS: 0241U; 99283

== ENCOUNTER 2021-05-17 03:38 | Inpatient (IN) | payer MEDICAID ==
[2021-05-17] MEDS ORDERED: Lidocaine 1% 50 ML MDV INJECT ONE (05:34)
[2021-05-17] MEDS ORDERED: Carboprost Tromethamine 250 MCG/1 ML Amp IM ONE (05:34)
[2021-05-17] MEDS ORDERED: Methylergonovine 0.2 MG/1 ML Amp IM ONE (05:34)
[2021-05-17] MEDS ORDERED: Sodium Chloride 0.9% 10 ML Syringe FLUSH PRN (05:34)
[2021-05-17] MEDS ORDERED: Calcium Carbonate 500 MG Tab.Chew PO PRN (05:34)
[2021-05-17] MEDS ORDERED: Misoprostol 200 MCG Tab RECTAL ONE (05:34)
[2021-05-17] MEDS ORDERED: Lactated Ringers 1,000 ML IV ONE (05:35)
[2021-05-17] MEDS ORDERED: Lactated Ringers 1,000 ML IV SCH (05:45)
[2021-05-17] MEDS ORDERED: Diphtheria,Pertussis(Acell),Tetanus Vaccine 0.5 ML Syringe IM ONE (05:57)
[2021-05-17] MEDS ORDERED: ePHEDrine 50 MG/ML SDV IVPUSH PRN (06:00)
[2021-05-17] MEDS ORDERED: Sodium Chloride 0.9% 10 ML ONE ×2 (06:03)
[2021-05-17] MEDS ORDERED: Ropivacaine 100 ML ONE (06:18)
[2021-05-17] MEDS ORDERED: Dextrose 5%-0.45% NaCl 500 ML IV SCH (07:00)
[2021-05-17] MEDS: Ondansetron 4 MG/2 ML SDV IV PRN ×2 (07:10→14:48)
[2021-05-17] MEDS ORDERED: Naloxone 0.4 MG/ML SDV IVPUSH PRN (09:26)
[2021-05-17] MEDS ORDERED: diphenhydrAMINE 50 MG/ML SDV IVPUSH PRN (09:26)
[2021-05-17] MEDS ORDERED: Ropivacaine 200 MG in Premix Bag 1 BAG EPIDUR SCH (09:30)
[2021-05-17] MEDS ORDERED: Ibuprofen 800 MG Tab PO PRN (11:24)
[2021-05-17] MEDS ORDERED: Docusate Sodium 100 MG Cap PO PRN (11:24)
[2021-05-17] MEDS ORDERED: Oxytocin 10 Units/1 ML SDV IM PRN (11:24)
[2021-05-17] MEDS ORDERED: Aluminum Hydroxide/Magnesium Hydroxide/Simethicone Susp 30 ML Cup PO PRN (11:24)
[2021-05-17] MEDS ORDERED: Acetaminophen 325 MG Tab PO PRN (11:24)
[2021-05-17] MEDS ORDERED: Benzocaine 20% Top Spray 56 GM Bottle TOP PRN (19:22)
[2021-05-17] MEDS ORDERED: Ibuprofen 200 MG Tab, 24 Tab Bulk Bottle PO PRN (19:22)
[2021-05-17] MEDS ORDERED: Witch Hazel Medicated Pads 100/Jar TOP PRN (19:22)
[2021-05-17] MEDS ORDERED: Lanolin 100% Cream 40 GM Tube TOP PRN (19:22)
[2021-05-17] MEDS ORDERED: Acetaminophen 325 MG Tab, 50 Tab Bulk Bottle PO PRN (19:22)
[2021-05-18 08:51] VITALS: BP 126/45; PULSE 93
== END 2021-05-18 14:05 | disposition home or self-care (01) | DRG 807 ==
LOC: JP.OB 03:38 → JP.OBCHECK 03:38 → JP.OB 05:00 → OBSVTOIN 05:00 → JP.OBCHECK 05:00 → JP.MS 17:00
PROVIDERS: ADMIT Obstetrics & Gynecology; ATTEND Obstetrics & Gynecology
PROC: 10H07YZ Insertion of Other Device into Products of Conception, Via Natural or Artificial Opening (ICD-10-PCS; principal; 2021-05-17)
PROC: 10E0XZZ Delivery of Products of Conception, External Approach (ICD-10-PCS; 2021-05-17)
PROC: 3E0R3BZ Introduction of Anesthetic Agent into Spinal Canal, Percutaneous Approach (ICD-10-PCS; 2021-05-17)
PROC: 00HU33Z Insertion of Infusion Device into Spinal Canal, Percutaneous Approach (ICD-10-PCS; 2021-05-17)
DX: O99.344 Other mental disorders complicating childbirth (principal); Z37.0 Single live birth; F41.0 Panic disorder [episodic paroxysmal anxiety]; F32.A Depression, unspecified; O69.81X0 Labor and delivery complicated by cord around neck, without compression, not applicable or unspecified; Z3A.38 38 weeks gestation of pregnancy; O77.0 Labor and delivery complicated by meconium in amniotic fluid; Z90.49 Acquired absence of other specified parts of digestive tract
CPT/HCPCS: 36415; 51702; 80305-QW; 81001; 85025; 85027; 85384; 85610; 86850; 86900; 86901; 86902; 86920; 86922; 99211; A9270-GY; J2405; J2590; J2795; J7120

== ENCOUNTER 2021-05-21 10:11 | Emergency (ER) | payer MEDICAID ==
[2021-05-21] MEDS ORDERED: fentaNYL 100 MCG/2 ML SDV IVPUSH ONE ×2 (10:59→13:16)
[2021-05-21] MEDS ORDERED: Sodium Chloride 0.9% 10 ML Syringe FLUSH PRN (10:59)
[2021-05-21] MEDS ORDERED: Sodium Chloride 0.9% 1,000 ML IV STA (10:59)
[2021-05-21] MEDS ORDERED: Sodium Chloride 0.9% 75 ML IV ONE (11:11)
[2021-05-21] MEDS ORDERED: Iopamidol 612 MG/ML 100 ML Bottle IV PRN (11:11)
[2021-05-21 13:27] VITALS: BP 132/78; PULSE 57
== END 2021-05-21 15:55 | disposition home or self-care (01) ==
LOC: JP.ED 10:11
DX: O99.893 Other specified diseases and conditions complicating puerperium (principal); R10.2 Pelvic and perineal pain; O99.335 Smoking (tobacco) complicating the puerperium; F17.210 Nicotine dependence, cigarettes, uncomplicated; Z88.0 Allergy status to penicillin; Z88.6 Allergy status to analgesic agent
CPT/HCPCS: 36415; 74177; 74177-26; 76857; 76857-26; 80053; 81001; 83605; 83690; 85025; 93976; 93976-26; 96374; 96376; 99283; 99284-25; J3010; J3490; J7030; Q9967

== ENCOUNTER 2021-12-01 15:38 | Emergency (ER) | payer MEDICAID ==
[2021-12-01] MEDS ORDERED: Metoclopramide 10 MG Tab PO ONE (18:15)
[2021-12-01] MEDS ORDERED: oxyCODONE 5 MG Tab PO ONE (18:15)
[2021-12-27 02:53] LABS: ESTIMATED GFR 106 mL/min (>60)
== END 2021-12-01 20:55 | disposition home or self-care (01) ==
LOC: JP.ED 15:38
DX: N94.6 Dysmenorrhea, unspecified (principal); F17.200 Nicotine dependence, unspecified, uncomplicated
CPT/HCPCS: 36415; 76830; 76856; 80048; 81025; 85027; 93976; 99284; A9270

== ENCOUNTER 2021-12-24 19:06 | Emergency (ER) | payer MEDICAID ==
[2021-12-24 19:16] VITALS: BP 145/93; PULSE 102
[2021-12-24] MEDS ORDERED: Prochlorperazine 10 MG/2 ML SDV IVPUSH ONE (19:53)
[2021-12-24] MEDS ORDERED: diphenhydrAMINE 50 MG/ML SDV IVPUSH ONE (19:54)
[2021-12-24] MEDS ORDERED: HYDROmorphone 0.5 MG/0.5 ML Syringe IVPUSH ONE (19:54)
[2021-12-24] MEDS ORDERED: Sodium Chloride 0.9% 1,000 ML IV SCH (20:00)
== END 2021-12-24 22:38 | disposition home or self-care (01) ==
LOC: JP.ED 19:06
DX: R51.9 Headache, unspecified (principal); M54.2 Cervicalgia; Z88.5 Allergy status to narcotic agent; Z88.0 Allergy status to penicillin; Z72.0 Tobacco use
CPT/HCPCS: 96361; 96374; 96375; 99284-25; J0780; J1170; J1200; J7030

== ENCOUNTER 2022-01-02 12:09 | Emergency (ER) | payer MEDICAID ==
[2022-01-02] MEDS ORDERED: Acetaminophen/oxyCODONE 325-5 MG Tab PO ONE (13:00)
[2022-01-02 13:40] LABS: ESTIMATED GFR 105 mL/min (>60)
[2022-01-02] MEDS ORDERED: Sodium Chloride 0.9% 10 ML Syringe FLUSH PRN (14:22)
[2022-01-02] MEDS ORDERED: Gadoteridol 279.3 MG/ML 15 ML SDV IV SCH (15:00)
[2022-01-02] MEDS ORDERED: cefTRIAXone 2 GM in Sodium Chloride 0.9% 50 ML IV ONE (15:38)
[2022-01-02] MEDS ORDERED: Sodium Chloride 0.9% 1,000 ML IV SCH (15:45)
[2022-01-02 16:19] LABS: CORONAVIRUS COVID-19 NAA NEGATIVE (NEGATIVE)
[2022-01-02] MEDS ORDERED: SUMAtriptan 6 MG/0.5 ML SDV SUBCUT ONE (17:53)
[2022-01-02 18:09] VITALS: BP 125/84; PULSE 90
== END 2022-01-02 18:44 | disposition home or self-care (01) ==
LOC: JP.ED 12:09
DX: S06.0X0A Concussion without loss of consciousness, initial encounter (principal); E86.0 Dehydration; N39.0 Urinary tract infection, site not specified; Z88.1 Allergy status to other antibiotic agents; Z79.899 Other long term (current) drug therapy; Z90.49 Acquired absence of other specified parts of digestive tract; Z20.822 Contact with and (suspected) exposure to COVID-19
CPT/HCPCS: 0241U; 36415; 70553; 80053; 80305; 81001; 85025; 87086; 96365; 96372; 99284; A9270; A9579; J0696; J3030; J3490; J7030

== ENCOUNTER 2022-03-18 20:51 | Emergency (ER) | payer MEDICAID ==
[2022-03-18 21:34] VITALS: BP 133/101; PULSE 86
[2022-03-18 22:16] LABS: CORONAVIRUS COVID-19 NAA NEGATIVE (NEGATIVE)
[2022-03-18] MEDS ORDERED: SUMAtriptan 6 MG/0.5 ML SDV SUBCUT ONE (22:20)
[2022-03-18] MEDS ORDERED: Acetaminophen 325 MG Tab PO ONE (22:30)
== END 2022-03-18 22:43 | disposition home or self-care (01) ==
LOC: JP.ED 20:51
DX: G43.909 Migraine, unspecified, not intractable, without status migrainosus (principal); L03.818 Cellulitis of other sites; B95.62 Methicillin resistant Staphylococcus aureus infection as the cause of diseases classified elsewhere; J45.909 Unspecified asthma, uncomplicated; Z22.322 Carrier or suspected carrier of Methicillin resistant Staphylococcus aureus; Z88.1 Allergy status to other antibiotic agents; Z88.0 Allergy status to penicillin; Z79.899 Other long term (current) drug therapy; Z86.16 Personal history of COVID-19; Z90.49 Acquired absence of other specified parts of digestive tract; Z72.0 Tobacco use; Z20.822 Contact with and (suspected) exposure to COVID-19
CPT/HCPCS: 0241U; 36415; 80048; 85025; 86140; 96372; 99283; A9270; J3030